=== PATIENT | female | born 1940 | race Caucasian/White ===

== ENCOUNTER 2021-07-26 19:16 | Inpatient (IN) | payer MEDICARE, OTHER ==
[~2021-07-26] VITALS: Ht 160 cm; Wt 62.1 kg
--- NOTE | 2021-07-26 19:20 | NUR ---
PT GI 88 FROM [facility] C/O SOB/ LOW O2 SAT 85% ON RA. BG 128. UPON TRIAGE PT ON 2LPM O2 VIA N/C TOLERATING AT 99%. PT LETHARGIC. CONNECTED PT TO POX AND MONITOR. SAFETY MEASURES IN PLACE.
--- NOTE | 2021-07-26 19:20 | NUR ---
PT GI 88 FROM [facility] C/O SOB/ LOW O2 SAT 85% ON RA. BG 128. UPON TRIAGE PT ON 2LPM O2 VIA N/C TOLERATING AT 99%. PT LETHARGIC. CONNECTED PT TO POX AND MONITOR. SAFETY MEASURES IN PLACE.
--- NOTE | 2021-07-26 19:40 | NUR ---
PRE KINDERGARTEN TEACHER AT PT'S BEDSIDE
--- NOTE | 2021-07-26 19:40 | NUR ---
CARDIOTHORACIC SURGEON AT PT'S BEDSIDE
--- NOTE | 2021-07-26 19:48 | NUR ---
BUILDING CODE INSPECTOR AT PT'S BEDSIDE
--- NOTE | 2021-07-26 19:48 | NUR ---
GAS STATION MANAGER AT PT'S BEDSIDE
--- NOTE | 2021-07-26 19:50 | NUR ---
RT AT PT'S BEDSIDE FOR ABG
--- NOTE | 2021-07-26 19:50 | NUR ---
RT AT PT'S BEDSIDE FOR ABG
--- NOTE | 2021-07-26 19:55 | NUR ---
ESTABLISHED LFA #18G S/L PATENT AND INTACT. BLOOD COLLECTED AND GIVEN TO LAB. SISAL OPERATOR RFA #20G S/L; PATENT AND INTACT.
--- NOTE | 2021-07-26 19:55 | NUR ---
ESTABLISHED LFA #18G S/L PATENT AND INTACT. BLOOD COLLECTED AND GIVEN TO LAB. GAS DISTRIBUTION SUPERVISOR RFA #20G S/L; PATENT AND INTACT.
--- NOTE | 2021-07-26 20:10 | NUR ---
ABG RESULTS SHOWN TO NATA MD & ORDERS FOR BIPAP. PT ON O2 2LPM SATTING AT 100%. RT NOW ON BIBAP SETTINGS 15/5 SATTING AT 100%.
--- NOTE | 2021-07-26 20:10 | NUR ---
ABG RESULTS SHOWN TO NATA MD & ORDERS FOR BIPAP. PT ON O2 2LPM SATTING AT 100%. RT NOW ON BIBAP SETTINGS 15/5 SATTING AT 100%.
[2021-07-26 20:24] LABS: BASOPHILS % (AUTO) 0.2 % (0.0-2.0); EOSINOPHILS % (AUTO) 1.7 % (0.0-6.0); HEMATOCRIT 26 % (33-45); HEMOGLOBIN 8.5 g/dL (11.5-14.8); LYMPHOCYTES # (AUTO) 0.6 K/uL (0.8-4.8); LYMPHOCYTES % (AUTO) 14.5 % (20.0-44.0); MEAN CORPUSCULAR HGB CONC 33 g/dl (31.0-36.0); MEAN CORPUSCULAR VOLUME 85 fL (82-100); MONOCYTES # (AUTO) 0.3 K/uL (0.1-1.30); MONOCYTES % (AUTO) 6.3 % (2.0-12.0); NEUTROPHILS # (AUTO) 3.1 K/uL (1.8-8.9); NEUTROPHILS % (AUTO) 77.3 % (43.0-81.0); PLATELET COUNT (AUTO) 93 K/uL (150-450); RED BLOOD CELL COUNT(AUTO) 3.08 MIL/uL (4.0-5.2)
--- NOTE | 2021-07-26 20:25 | NUR ---
Note feliz in EDM - 07/26/21 at 2150 by KOFFI PT GI 88 FROM [facility] C/O SOB/ LOW O2 SAT 85% ON RA. BG 128. UPON TRIAGE PT ON 2LPM O2 VIA N/C TOLERATING AT 99%. PT LETHARGIC. CONNECTED PT TO POX AND MONITOR. SAFETY MEASURES IN PLACE.
--- NOTE | 2021-07-26 20:25 | NUR ---
Note feliz in EDM - 07/26/21 at 2150 by KOFFI PT GI 88 FROM [facility] C/O SOB/ LOW O2 SAT 85% ON RA. BG 128. UPON TRIAGE PT ON 2LPM O2 VIA N/C TOLERATING AT 99%. PT LETHARGIC. CONNECTED PT TO POX AND MONITOR. SAFETY MEASURES IN PLACE.
--- NOTE | 2021-07-26 20:30 | NUR ---
COVID ANTIGEN SWAB COLLECTED AND SENT TO LAB
--- NOTE | 2021-07-26 20:30 | NUR ---
COVID ANTIGEN SWAB COLLECTED AND SENT TO LAB
[2021-07-26 20:46] LABS: CALCIUM, SERUM 7.9 mg/dL (8.5-10.1); CREATININE 0.6 mg/dL (0.6-1.3); POTASSIUM 4.5 mmol/L (3.5-5.1)
[2021-07-26 20:58] LABS: ALBUMIN 2.4 g/dL (3.4-5.0); BILIRUBIN,DIRECT 0.2 mg/dL (0.0-0.2); BILIRUBIN,TOTAL 0.8 mg/dL (0.2-1.0); TOTAL PROTEIN, SERUM 6.4 g/dL (6.4-8.2)
[2021-07-26] MEDS ORDERED: VANCOMYCIN 1 GM in IV D5W 250 ML IV ONE (21:00)
[2021-07-26] MEDS ORDERED: MEROPENEM 1,000 MG in IV NS 0.9% 100 ML IV ONE (21:00)
[2021-07-26 21:26] LABS: ABG BASE EXCESS 13.8 mmol/L; ABG PCO2 71.1 mmHg (35.0-45.0); COHb 0.3 % (0.5-1.5); MetHb 0.3 % (0.0-1.5); O2Hb 96.9 % (94.0-97.0); SITE, ABG Right Radial; VENT MODE, BG Nasal Cannula
[2021-07-26] MEDS ORDERED: IV NS 0.9% 500 ML BAG IV ONE (21:30)
[2021-07-26] MEDS ORDERED: ACETAMINOPHEN 325 MG TABLET PO PRN (21:30)
[2021-07-26] MEDS ORDERED: ONDANSETRON HCL/PF 4 MG/2 ML VIAL IVP PRN (21:30)
[2021-07-26] MEDS ORDERED: MAGNESIUM HYDROXIDE 30 ML UDC PO PRN (21:30)
--- NOTE | 2021-07-26 21:48 | NUR ---
INSERTED 16FR F/C WITH YELLOW URINE OUTPUT; PATENT AND INTACT. COLLECTED URINE AND SENT TO LAB.
--- NOTE | 2021-07-26 21:48 | NUR ---
INSERTED 16FR F/C WITH YELLOW URINE OUTPUT; PATENT AND INTACT. COLLECTED URINE AND SENT TO LAB.
[2021-07-26 22:32] LABS: LYMPHOCYTES % (MANUAL) 17 % (16-48); MONOCYTES % (MANUAL) 5 % (0-11.0); NEUTROPHILS % (MANUAL) 78 (42-76)
[2021-07-26 22:36] LABS: BILIRUBIN,URINE NEGATIVE (NEGATIVE); COLOR,URINE YELLOW (YELLOW); LEUKOCYTE ESTERASE ,URINE NEGATIVE (NEGATIVE); NITRITE, URINE NEGATIVE (NEGATIVE); PH,URINE 6.5 (5.0-8.0); PROTEIN,URINE TRACE mg/dl (NEGATIVE); UGLUCOSE NEGATIVE (NEGATIVE)
--- NOTE | 2021-07-26 22:41 | NUR ---
ICU 255
--- NOTE | 2021-07-26 22:41 | NUR ---
ICU 255
--- NOTE | 2021-07-26 22:47 | NUR ---
UPDATED DAUGHTER REYNA
--- NOTE | 2021-07-26 22:47 | NUR ---
UPDATED DAUGHTER REYNA
--- NOTE | 2021-07-26 22:51 | NUR ---
RN NOTES RECEIVED ER ADMISSION REPORT FROM FRANKLIN NUR. ALL PERTINENT ADMISSION INFO REGARDING PT NOTED. WILL WAIT FOR PT TO BE TRANSFERRED TO UNIT AND ADDRESS NEEDS ACCORDINGLY. [place] UNDERWRITER MADE AWARE.
--- NOTE | 2021-07-26 22:51 | NUR ---
RN NOTES RECEIVED ER ADMISSION REPORT FROM FRANKLIN NUR. ALL PERTINENT ADMISSION INFO REGARDING PT NOTED. WILL WAIT FOR PT TO BE TRANSFERRED TO UNIT AND ADDRESS NEEDS ACCORDINGLY. FLOWER CHENILLER MADE AWARE.
--- NOTE | 2021-07-26 22:54 | NUR ---
REPORT GIVEN TO DAVIE METER MAINTENANCE PERSON FOR SHAKA
--- NOTE | 2021-07-26 22:54 | NUR ---
REPORT GIVEN TO DAVIE MRP CONTROLLER FOR SHAKA
[2021-07-26 23:15] LABS: C-REACTIVE PROTEIN 2.4 mg/dL (0.0-0.9)
[2021-07-26] MEDS ORDERED: FUROSEMIDE 40 MG/4 ML VIAL IV ONE (23:30)
[2021-07-26] MEDS ORDERED: MODAFINIL PO (23:41)
[2021-07-26] MEDS ORDERED: LEVA0.6320 IH (23:41)
[2021-07-26] MEDS ORDERED: ASPI-1169 PO (23:41)
[2021-07-26] MEDS ORDERED: CYAN-51 PO (23:41)
[2021-07-26] MEDS ORDERED: PANT40TA49 PO (23:41)
--- NOTE | 2021-07-26 23:56 | NUR ---
RT AT PT'S BEDSIDE FOR ABG
--- NOTE | 2021-07-26 23:56 | NUR ---
RT AT PT'S BEDSIDE FOR ABG
[2021-07-27] VITALS (46 sets, daily range): BP systolic 82–162; BP diastolic 27–94
[2021-07-27 00:07] LABS: ABG BASE EXCESS 14.2 mmol/L; ABG PCO2 61.5 mmHg (35.0-45.0); ABG PH 7.435 (7.350-7.450); ABG PO2 83.6 mmHg (75.0-100.0); COHb 0.3 % (0.5-1.5); MetHb 0.3 % (0.0-1.5); O2Hb 95.8 % (94.0-97.0); SITE, ABG Right Brachial; VENT MODE, BG Bipap 15/5 30% RR12
--- NOTE | 2021-07-27 00:15 | NUR ---
RN NOTES RECEIVED PT FROM ER VIA CARYRBRIGIDA ACCOMPANIED BY 2 ER STAFF AND TRANSFERRED TO BED VIA 2 PERSON ASSIST. PT IS A/OX1; ; PT ON BIPAP SETTINGS PRESCRIBED WITH RESPIRATIONS EVEN AND UNLABORED. COMPREHENSIVE PHYSICAL ASSESSMENT AND PATIENT CARE DONE. CALL LIGHT WITHIN REACH, SAFETY MEASURES AND ISOLATION PRECAUTION IN PLACE, WILL CONTINUE MONITOR AND ASSESS THROUGHOUT THE SHIFT. WILL CARRY OUT MD ORDERS ACCORDINGLY. RIBBON INKER MADE AWARE.
--- NOTE | 2021-07-27 00:15 | NUR ---
RN NOTES RECEIVED PT FROM ER VIA CARYRBRIGIDA ACCOMPANIED BY 2 ER STAFF AND TRANSFERRED TO BED VIA 2 PERSON ASSIST. PT IS A/OX1; ; PT ON BIPAP SETTINGS PRESCRIBED WITH RESPIRATIONS EVEN AND UNLABORED. COMPREHENSIVE PHYSICAL ASSESSMENT AND PATIENT CARE DONE. CALL LIGHT WITHIN REACH, SAFETY MEASURES AND ISOLATION PRECAUTION IN PLACE, WILL CONTINUE MONITOR AND ASSESS THROUGHOUT THE SHIFT. WILL CARRY OUT MD ORDERS ACCORDINGLY. PUBLIC HEALTH NUTRITIONIST MADE AWARE.
--- NOTE | 2021-07-27 00:18 | NUR ---
PT TRANSFERRED TO ICU BED 255 VIA ACLS PROTOCOL WITH RT. PER REYNA DAUGHTER, WISHES FOR PT TO BE FULL CODE. ALL BELONGINGS WITH PT.
--- NOTE | 2021-07-27 00:18 | NUR ---
PT TRANSFERRED TO ICU BED 255 VIA ACLS PROTOCOL WITH RT. PER REYNA DAUGHTER, WISHES FOR PT TO BE FULL CODE. ALL BELONGINGS WITH PT.
--- NOTE | 2021-07-27 00:40 | NUR ---
RN NOTES CALLED REYNA ( [phone]) PT'S DAUGHTER PROVIDED GENERAL UPDATES. ALSO OBTAINED FF INFO: PT IS FULL CODE, NON SMOKER AND NON ALCOHOL DRINKER, NO SUICIDAL IDEATION AT HOME, BUT BEING TAKING MEDICATION FOR SLEEP. CLIFFGLG MARGA. USES WALKER AT HOME. PT HAS IRREGULAR BOWEL FREQUENCY. RN ACKNOWLEDGED. ADVISED REYNA THAT WILL KEEP THEM UPDATED FOR ANY SIGNIFICANT CHANGES ABOUT PT. FAMILY ACKNOWLEDGED AND THANKFUL. CUSTOMER SUCCESS MANAGER MADE AWARE. Addendum: 07/27/21 at 0111 by RED CHE RN ALSO RECEIVED PNEUMONIA AND FLU VACCINE AND 2 DOSES OF COVID VACCINE LAST YEAR.
--- NOTE | 2021-07-27 00:40 | NUR ---
RN NOTES CALLED REYNA ( [phone]) PT'S DAUGHTER PROVIDED GENERAL UPDATES. ALSO OBTAINED FF INFO: PT IS FULL CODE, NON SMOKER AND NON ALCOHOL DRINKER, NO SUICIDAL IDEATION AT HOME, BUT BEING TAKING MEDICATION FOR SLEEP. CLIFFBitMethod MARGA. USES WALKER AT HOME. PT HAS IRREGULAR BOWEL FREQUENCY. RN ACKNOWLEDGED. ADVISED REYNA THAT WILL KEEP THEM UPDATED FOR ANY SIGNIFICANT CHANGES ABOUT PT. FAMILY ACKNOWLEDGED AND THANKFUL. EVALUATION SPECIALIST MADE AWARE. Addendum: 07/27/21 at 0111 by RED CHE RN ALSO RECEIVED PNEUMONIA AND FLU VACCINE AND 2 DOSES OF COVID VACCINE LAST YEAR.
[2021-07-27] MEDS: PANTOPRAZOLE 40 MG VIAL IV SCH ×2 (01:00→09:58)
[2021-07-27] MEDS: ENOXAPARIN SODIUM 40 MG/0.4 ML DISP.SYRIN SQ SCH ×2 (01:01→20:47)
--- NOTE | 2021-07-27 04:05 | NUR ---
RN NOTES NO NOTED CHANGES IN PATIENT CONDITION AT THIS TIME; PATIENT VITALS STABLE, NO SIGNS OF ACUTE RESPIRATORY DISTRESS. AM PATIENT CARE RENDERED.WILL CONTINUE TO MONITOR AND REASSESS FOR ANY CHANGES THROUGHOUT THE SHIFT.
[2021-07-27 04:46] LABS: BASOPHILS % (AUTO) 0.2 % (0.0-2.0); EOSINOPHILS % (AUTO) 2.2 % (0.0-6.0); HEMATOCRIT 27 % (33-45); HEMOGLOBIN 8.6 g/dL (11.5-14.8); LYMPHOCYTES # (AUTO) 0.7 K/uL (0.8-4.8); LYMPHOCYTES % (AUTO) 15.9 % (20.0-44.0); MEAN CORPUSCULAR HGB CONC 32 g/dl (31.0-36.0); MEAN CORPUSCULAR VOLUME 86 fL (82-100); MONOCYTES # (AUTO) 0.3 K/uL (0.1-1.30); NEUTROPHILS # (AUTO) 3.2 K/uL (1.8-8.9); NEUTROPHILS % (AUTO) 73.7 % (43.0-81.0); PLATELET COUNT (AUTO) 100 K/uL (150-450); RED BLOOD CELL COUNT(AUTO) 3.12 MIL/uL (4.0-5.2); WHITE BLOOD COUNT (AUTO) 4.3 K/uL (4.3-11.0)
[2021-07-27 04:57] LABS: CALCIUM, SERUM 7.9 mg/dL (8.5-10.1); CHLORIDE 100 mmol/L (98-107); CREATININE 0.6 mg/dL (0.6-1.3); GLUCOSE 95 mg/dL (74-106); MAGNESIUM 2.2 mg/dL (1.8-2.4); PHOSPHORUS 3.7 mg/dL (2.5-4.9); POTASSIUM 3.9 mmol/L (3.5-5.1); SODIUM SERUM 144 mmol/L (136-145); UREA NITROGEN, BLOOD 33 mg/dL (7-18)
[2021-07-27 05:04] LABS: CHOLESTEROL 98 mg/dL (<200); HDL CHOLESTEROL 46 mg/dL (40-60); LDL 42 mg/dL (0-99); TRIGLYCERIDES 52 mg/dL (30-150)
[2021-07-27 05:08] LABS: CARBON DIOXIDE 40 mmol/L (21-32)
--- NOTE | 2021-07-27 05:20 | NUR ---
RN NOTES NOTIFIED IGOR OROZCO (MEME Márquez,SALLY) REGARDING CO2 FOR THIS AM @40, PREVIOSULY AT 38; PT STILL ON BIPAP. NO NEW ORDERS FROM IGOR OROZCO. RETAIL CASHIER ASSOCIATE MADE AWARE.
--- NOTE | 2021-07-27 05:20 | NUR ---
RN NOTES NOTIFIED IGOR OROZCO (MEME Márquez,SALLY) REGARDING CO2 FOR THIS AM @40, PREVIOSULY AT 38; PT STILL ON BIPAP. NO NEW ORDERS FROM IGOR OROZCO. NETWORK DESIGN ARCHITECT MADE AWARE.
--- NOTE | 2021-07-27 06:00 | NUR ---
RN NOTES FACILITATED INSERTION OF ADDITIONAL IV LINE/ACCESS @ L HAND G#22; SALINE LOCK, SECURED, INTACT AND FLUSHING WELL. PLANT CHIEF MADE AWARE.
--- NOTE | 2021-07-27 06:00 | NUR ---
RN NOTES FACILITATED INSERTION OF ADDITIONAL IV LINE/ACCESS @ L HAND G#22; SALINE LOCK, SECURED, INTACT AND FLUSHING WELL. FARMER DIVERSIFIED CROPS MADE AWARE.
--- NOTE | 2021-07-27 07:01 | NUR ---
RN CLOSING NOTE: PATIENT REMAINS IN ROOM IN NO SIGNS OF RESPIRATORY DISTRESS, PATIENT STILL ON 15L OF 02 VIA BIPAP, SETTING PRESCRIBED;TOLERATING WELL SATURATING @ >95% SP02. SAFETY MEASURES IMPLEMENTED, BED IN LOWEST POSITION, LOCKED, SIDE RAILS UP, CALL LIGHT WITHIN REACH. ALL NEEDS AND ORDERS ADDRESSED DURING THE SHIFT. IV ACCESS MAINTAINED INTACT, SECURED AND FLUSHING WELL. ALL DUE MEDS GIVEN ORDERED & SCHEDULED ; PATIENT TOLERATED WELL. PATIENT KEPT CLEAN AND COMFORTABLE WITHIN THE SHIFT. PATIENT ENDORSED TO INCOMING SHIFT RN WITH STABLE VITAL SIGN AND FOR CONTINUITY OF CARE.
--- NOTE | 2021-07-27 07:30 | NUR ---
AUTOMATIC SERGING MACHINE OPERATOR OPENING NOTES Patient is alert but not oriented and forgetfull and confused. Per report patient pulled out her IV lines. Patient on bipap and 02 sat of 98% . HOB kept elevated. Patient noted with aponte cath and its intact and hanging to gravity with clear yellow urine. Will continue to monitor. Call light with in reach. Bed is in lowest and locked position.
--- NOTE | 2021-07-27 08:00 | NUR ---
Patient noted with iv line out. Site free of s/s of bleeding. New iv line to left hand started but patient pulled it out again. Patient currently on 3 liters 02 via n/c. Informed MD Tuttle and received orders for Bilateral soft wrist restraints. Patient started iv line to left forearm 22 gauge.
--- NOTE | 2021-07-27 08:36 | NUR ---
WOUND CARE CONSULT: REVIEWED CHART, NURSING DOCUMENTATION AND PHOTOS WHICH INDICATE LOWER EXTREMITY WOUNDS AND DISCOLORATION/SCARRING TO BACK AND SACRUM PRESENT ON ADMISSION. DPM CONSULT CALLED TO DR BREWER. RECOMMENDATIONS MADE FOR SKIN PROTECTION. DISCUSSED WITH NURSING STAFF. PER RN, PT ABLE TO ASSIST WITH TURNING AND REPOSITIONING IN BED. MD IN AGREEMENT WITH PLAN OF CARE.
[2021-07-27] MEDS ORDERED: Z GUARD REMEDY 4 OZ OINT TP PRN (09:00)
[2021-07-27 09:21] LABS: BACTERIA,URINE Few /HPF (None Seen); RBC,URINE 0-3 /HPF (0-2); SQUAMOUS EPITHELIAL CELL,UR Moderate /HPF (None Seen); WBC,URINE 0-2 /HPF (0-3)
[2021-07-27] MEDS: Z GUARD REMEDY 4 OZ OINT TP SCH (09:58)
[2021-07-27] MEDS ORDERED: DOSE PER PHARMACY (MD SPECIFY MEDICATION) 1 EA IV PRN (15:30)
--- NOTE | 2021-07-27 16:00 | NUR ---
Received ST consult from MD Tuttle for diet order due to patient positive for video swallow study at [facility] per records.
--- NOTE | 2021-07-27 16:00 | NUR ---
Received ST consult from MD Tuttle for diet order due to patient positive for video swallow study at [facility] per records.
[2021-07-27] MEDS: VANCOMYCIN HCL 0.75 GM in IV D5W 250 ML IV SCH (16:35)
[2021-07-27] MEDS: MEROPENEM 1 G in IV NS 0.9% 100 ML IV SCH (17:43)
--- NOTE | 2021-07-27 18:53 | NUR ---
RECRUITMENT ASSISTANT CLOSING NOTES Patient is alert but not oriented and forgetfull and confused. Patient is on 3 liters via n/c with 02 sat of 98%. HOB kept elevated. Patient noted with aponte cath and its intact and hanging to gravity with clear yellow urine and output of 800 cc. Will continue to monitor. Call light with in reach. Bed is in lowest and locked position. Endorsed to next shift for SHAKA.
--- NOTE | 2021-07-27 20:43 | NUR ---
ORAL SURGERY PHYSICIAN DESPITE BSWR PT HAS REMOVED LEADS 3x; PT APOLOGIZES SAYING ITS BECAUSE SHE FELL ASLEEP.
--- NOTE | 2021-07-27 20:43 | NUR ---
STAMPING DIE MAKER BENCH DESPITE BSWR PT HAS REMOVED LEADS 3x; PT APOLOGIZES SAYING ITS BECAUSE SHE FELL ASLEEP.
[2021-07-28] VITALS (24 sets, daily range): BP systolic 83–180; BP diastolic 40–100
[2021-07-28] MEDS: MEROPENEM 1 G in IV NS 0.9% 100 ML IV SCH ×3 (01:15→16:00)
[2021-07-28] MEDS: VANCOMYCIN HCL 0.75 GM in IV D5W 250 ML IV SCH (04:00)
[2021-07-28 05:11] LABS: BASOPHILS % (AUTO) 0.3 % (0.0-2.0); EOSINOPHILS % (AUTO) 2.2 % (0.0-6.0); HEMATOCRIT 28 % (33-45); HEMOGLOBIN 9.3 g/dL (11.5-14.8); LYMPHOCYTES # (AUTO) 0.6 K/uL (0.8-4.8); LYMPHOCYTES % (AUTO) 15.6 % (20.0-44.0); MEAN CORPUSCULAR HGB CONC 33 g/dl (31.0-36.0); MEAN CORPUSCULAR VOLUME 85 fL (82-100); MONOCYTES # (AUTO) 0.3 K/uL (0.1-1.30); MONOCYTES % (AUTO) 9.1 % (2.0-12.0); NEUTROPHILS # (AUTO) 2.8 K/uL (1.8-8.9); NEUTROPHILS % (AUTO) 72.8 % (43.0-81.0); PLATELET COUNT (AUTO) 122 K/uL (150-450); RED BLOOD CELL COUNT(AUTO) 3.28 MIL/uL (4.0-5.2); WHITE BLOOD COUNT (AUTO) 3.8 K/uL (4.3-11.0)
--- NOTE | 2021-07-28 05:32 | NUR ---
HIGH SCHOOL BUSINESS TEACHER PT REFUSED BIPAP REMAINED ON 02 3 L NC NO DISTRESS NOTED
--- NOTE | 2021-07-28 05:32 | NUR ---
ESCALATOR INSTALLER PT REFUSED BIPAP REMAINED ON 02 3 L NC NO DISTRESS NOTED
[2021-07-28 05:57] LABS: ALANINE AMINOTRANSFERASE 15 U/L (12-78); ALBUMIN 2.5 g/dL (3.4-5.0); ALKALINE PHOSPHATASE 103 U/L (46-116); ASPARTATE AMINOTRANSFERASE 23 U/L (15-37); BILIRUBIN,TOTAL 1.1 mg/dL (0.2-1.0); CALCIUM, SERUM 7.5 mg/dL (8.5-10.1); CARBON DIOXIDE 34 mmol/L (21-32); CHLORIDE 100 mmol/L (98-107); CREATININE 0.5 mg/dL (0.6-1.3); GLUCOSE 68 mg/dL (74-106); PHOSPHORUS 2.7 mg/dL (2.5-4.9); POTASSIUM 3.5 mmol/L (3.5-5.1); SODIUM SERUM 140 mmol/L (136-145); TOTAL PROTEIN, SERUM 6.4 g/dL (6.4-8.2); UREA NITROGEN, BLOOD 27 mg/dL (7-18)
--- NOTE | 2021-07-28 07:11 | NUR ---
RN OPENING NOTE RECEIVE REPORT FROM CHECK EMBOSSER NURSE. PATIENT IN STABLE CONDITION WITH NO SIGN OF DISTRESS. A/O X2. CURRENTLY ON NC AT 3L/MIN WITH O2 SAT AT 100%. PATIENT IS NPO AND AWAITING SPEECH CONSULT FOR DIET. WILL FOLLOW UP AM LABS AND DOCTOR ORDERS. PROPER ISOLATION IN PLACE. ALL SAFETY MEASURE IN PLACE. BED ON LOWEST POSITION WITH HOB ELEVATED. CALL LIGHT WITHIN REACH. WILL CONTINUE TO MONITOR.
--- NOTE | 2021-07-28 07:11 | NUR ---
RN OPENING NOTE RECEIVE REPORT FROM ORDERLIES TEACHER NURSE. PATIENT IN STABLE CONDITION WITH NO SIGN OF DISTRESS. A/O X2. CURRENTLY ON NC AT 3L/MIN WITH O2 SAT AT 100%. PATIENT IS NPO AND AWAITING SPEECH CONSULT FOR DIET. WILL FOLLOW UP AM LABS AND DOCTOR ORDERS. PROPER ISOLATION IN PLACE. ALL SAFETY MEASURE IN PLACE. BED ON LOWEST POSITION WITH HOB ELEVATED. CALL LIGHT WITHIN REACH. WILL CONTINUE TO MONITOR.
[2021-07-28] MEDS: PANTOPRAZOLE 40 MG VIAL IV SCH (08:50)
[2021-07-28] MEDS: Z GUARD REMEDY 4 OZ OINT TP SCH (08:50)
[2021-07-28 11:31] LABS: ABG PH 7.407 (7.350-7.450); AaDO2 51.9 mmHg; COHb 0.3 % (0.5-1.5); MetHb 0.3 % (0.0-1.5); O2Hb 96.4 % (94.0-97.0); SITE, ABG Right Radial; VENT MODE, BG N/C
[2021-07-28] MEDS: VANCOMYCIN 1.25 GM in IV D5W 250 ML IV SCH (16:51)
--- NOTE | 2021-07-28 18:38 | NUR ---
RN CLOSING NOTE PATIENT MAINTAIN STABLE CONDITION WITH NO SIGN OF DISTRESS THROUGH OUT SHIFT. NEURO ASSESSMENT REMAIN AT BASELINE. A/O X1. CONTINUE RECEIVING O2 DELIVERY VIA NC AT 3L/MIN. O2 SAT 98-100%. PATIENT OK TO TRANSFER TO LOWER LEVEL OF CARE PER DR. ALVAREZ. VANCOMYCIN TROUGH WAS DRAWN PRIOR TO 3RD DOSE OF VANCOMYCIN. VACO TROUGH RESULT 4. 3RD DOSE WAS STARTED. AWAITING SPEECH CONSULT EVALUATION FOR DIET. PATIENT WAS TURN AND REPOSITION PER PROTOCOL. PROPER ISOLATION PRECAUTION IN PLACE. ALL SAFETY MEASURE IN PLACE. BED ON LOWEST POSITION WITH HOB ELEVATED AND 3 SIDE RAIL UP. CALL LIGHT WITHIN REACH. WILL CONTINUE TO MONITOR AND ENDORSE TO NURSE WHO WILL BE CONTINUE CARE.
[2021-07-28] MEDS ORDERED: IV NS 0.9% 250 ML IV PRN (19:30)
[2021-07-28] MEDS: ENOXAPARIN SODIUM 40 MG/0.4 ML DISP.SYRIN SQ SCH (21:06)
[2021-07-29] VITALS (28 sets, daily range): BP systolic 91–147; BP diastolic 25–77
[2021-07-29] MEDS: VANCOMYCIN 1.25 GM in IV D5W 250 ML IV SCH ×2 (04:00→15:52)
[2021-07-29 05:24] LABS: BASOPHILS % (AUTO) 0.4 % (0.0-2.0); EOSINOPHILS % (AUTO) 2.2 % (0.0-6.0); HEMATOCRIT 29 % (33-45); HEMOGLOBIN 9.4 g/dL (11.5-14.8); LYMPHOCYTES # (AUTO) 0.6 K/uL (0.8-4.8); LYMPHOCYTES % (AUTO) 13.4 % (20.0-44.0); MEAN CORPUSCULAR HGB CONC 33 g/dl (31.0-36.0); MEAN CORPUSCULAR VOLUME 84 fL (82-100); MONOCYTES # (AUTO) 0.3 K/uL (0.1-1.30); MONOCYTES % (AUTO) 7.1 % (2.0-12.0); NEUTROPHILS # (AUTO) 3.2 K/uL (1.8-8.9); NEUTROPHILS % (AUTO) 76.9 % (43.0-81.0); PLATELET COUNT (AUTO) 172 K/uL (150-450); WHITE BLOOD COUNT (AUTO) 4.2 K/uL (4.3-11.0)
[2021-07-29 05:46] LABS: ALANINE AMINOTRANSFERASE 20 U/L (12-78); ALBUMIN 2.5 g/dL (3.4-5.0); ALKALINE PHOSPHATASE 99 U/L (46-116); ASPARTATE AMINOTRANSFERASE 22 U/L (15-37); CALCIUM, SERUM 7.4 mg/dL (8.5-10.1); CARBON DIOXIDE 34 mmol/L (21-32); CHLORIDE 97 mmol/L (98-107); CREATININE 0.5 mg/dL (0.6-1.3); GLUCOSE 62 mg/dL (74-106); MAGNESIUM 1.8 mg/dL (1.8-2.4); PHOSPHORUS 2.3 mg/dL (2.5-4.9); POTASSIUM 3.5 mmol/L (3.5-5.1); SODIUM SERUM 136 mmol/L (136-145); TOTAL PROTEIN, SERUM 6.2 g/dL (6.4-8.2); UREA NITROGEN, BLOOD 24 mg/dL (7-18)
--- NOTE | 2021-07-29 07:00 | NUR ---
RN NOTES RECEIVED PT ON BED, A/Ox1, CAYMAN ISLANDER SPEAKING , ON 3L O2 N/C , ON TELE SR HR IN 60'S , OLVERA DRAINING TO GRAVITY, IV SITES CLEAN , DRY AND INTACT, PT IS NPO , PENDING SWALLOWING EVAL , SR UP x3, CALL LIGHT WITHIN EASY REACH, BED LOCKED AND IN LOWEST POSITION , CONTINUE TO MONITOR.
--- NOTE | 2021-07-29 07:00 | NUR ---
RN NOTES RECEIVED PT ON BED, A/Ox1, GERMAN SPEAKING , ON 3L O2 N/C , ON TELE SR HR IN 60'S , OLVERA DRAINING TO GRAVITY, IV SITES CLEAN , DRY AND INTACT, PT IS NPO , PENDING SWALLOWING EVAL , SR UP x3, CALL LIGHT WITHIN EASY REACH, BED LOCKED AND IN LOWEST POSITION , CONTINUE TO MONITOR.
[2021-07-29] MEDS: PANTOPRAZOLE 40 MG VIAL IV SCH (08:05)
[2021-07-29] MEDS: Z GUARD REMEDY 4 OZ OINT TP SCH (08:05)
[2021-07-29] MEDS: MEROPENEM 1 G in IV NS 0.9% 100 ML IV SCH ×3 (08:05→16:59)
--- NOTE | 2021-07-29 11:00 | NUR ---
RN NOTES PT TOLERATING RA WELL , O2 SAT WNL, CONTINUE TO MONITOR .
--- NOTE | 2021-07-29 11:00 | NUR ---
RN NOTES PT TOLERATING RA WELL , O2 SAT WNL, CONTINUE TO MONITOR .
[2021-07-29] MEDS ORDERED: NEUTRA PHOS 1 POWD.PACKET PO ONE (14:00)
--- NOTE | 2021-07-29 17:30 | NUR ---
RN NOTES PT REFUSED DINNER .
--- NOTE | 2021-07-29 17:30 | NUR ---
RN NOTES PT REFUSED DINNER .
--- NOTE | 2021-07-29 18:08 | NUR ---
RN NOTES PT REMANS A/O X2, ON RA, NO RESPIRATORY DISTRESS NOTED , REFUSED TO EAT AT TIMES , IV SITES CLEAN, DRY AND INTACT, WILL ENDORSE TO MEDICAL LABORATORY TECHNICAL OFFICER NURSE FOR CONTINUITY OF CARE .
--- NOTE | 2021-07-29 18:08 | NUR ---
RN NOTES PT REMANS A/O X2, ON RA, NO RESPIRATORY DISTRESS NOTED , REFUSED TO EAT AT TIMES , IV SITES CLEAN, DRY AND INTACT, WILL ENDORSE TO DISPATCHER REFINERY NURSE FOR CONTINUITY OF CARE .
--- NOTE | 2021-07-29 19:05 | NUR ---
RN NOTES PT TRANSFERRED TO ROOM 116-1 [facility] STATUS VIA ACLS PROTOCOL IN STABLE CONDITION, REPORT GIVEN TO RAMON REID FOR CONTINUITY OF CARE .
--- NOTE | 2021-07-29 19:05 | NUR ---
RN NOTES PT TRANSFERRED TO ROOM 116-1 [facility] STATUS VIA ACLS PROTOCOL IN STABLE CONDITION, REPORT GIVEN TO RAMON REID FOR CONTINUITY OF CARE .
--- NOTE | 2021-07-29 19:07 | NUR ---
RN NOTES RECEIVED PATIENT FROM ICU ACCOMPANIED BY MARY ALICE REDI, LIVIER CONTINUATION OF CARE, RECEIVED REPORT AT BEDSIDE, PATIENT AT ROOM AIR WITH STABLE VITAL SIGNS AND O2 WNL, NO SOB/ACUTE DISTRESS NOTED, RECEIVED PATIENT ON BILATERAL RESTRAINS, NO ABNORMALITY NOTED AT SITE, NO CIRCULATION COMPROMISED, WILL CONTINUE TO MONITOR CLOSELY.
--- NOTE | 2021-07-29 19:07 | NUR ---
RN NOTES RECEIVED PATIENT FROM ICU ACCOMPANIED BY MARY ALICE REID, LIVIER CONTINUATION OF CARE, RECEIVED REPORT AT BEDSIDE, PATIENT AT ROOM AIR WITH STABLE VITAL SIGNS AND O2 WNL, NO SOB/ACUTE DISTRESS NOTED, RECEIVED PATIENT ON BILATERAL RESTRAINS, NO ABNORMALITY NOTED AT SITE, NO CIRCULATION COMPROMISED, WILL CONTINUE TO MONITOR CLOSELY.
[2021-07-29] MEDS: ENOXAPARIN SODIUM 40 MG/0.4 ML DISP.SYRIN SQ SCH (21:40)
[2021-07-30] VITALS: BP 129/69
[2021-07-30] MEDS: MEROPENEM 1 G in IV NS 0.9% 100 ML IV SCH ×3 (01:22→16:35)
[2021-07-30 04:00] VITALS: BP 126/56
[2021-07-30] MEDS: VANCOMYCIN 1.25 GM in IV D5W 250 ML IV SCH ×2 (04:00→15:06)
--- NOTE | 2021-07-30 07:20 | NUR ---
RN CLOSING NOTES PATIENT IN BED , NO SOB/ACUTE DISTRESS NOTED, NO SIGNIFICANT CHANGE IN CONDITION DURING THE NIGHT, ON BILATERAL RESTRAINS, NO ABNORMALITY NOTED AT SITE, NO CIRCULATION COMPROMISED, ENDORSED PATIENT TO STEVE REID FOR CONTINUITY OF CARE.
--- NOTE | 2021-07-30 07:24 | NUR ---
RN OPENING NOTE RECEIVE REPORT FROM EXECUTIVE ASSOCIATE NURSE. PATIENT IN STABLE CONDITION WITH NO SIGN OF DISTRESS. A/O X2. CURRENTLY ON RASAT AT 95%. PATIENT IS ON PUREE DIET. WILL FOLLOW UP AM LABS AND DOCTOR ORDERS. PROPER ISOLATION IN PLACE. ALL SAFETY MEASURE IN PLACE. BED ON LOWEST LOCKED POSITION WITH HOB ELEVATED. SR UP X 3 AND CALL LIGHT WITHIN REACH. WILL CONTINUE TO MONITOR.
--- NOTE | 2021-07-30 07:24 | NUR ---
RN OPENING NOTE RECEIVE REPORT FROM DIRECTOR OF VOCATIONAL TRAINING NURSE. PATIENT IN STABLE CONDITION WITH NO SIGN OF DISTRESS. A/O X2. CURRENTLY ON RASAT AT 95%. PATIENT IS ON PUREE DIET. WILL FOLLOW UP AM LABS AND DOCTOR ORDERS. PROPER ISOLATION IN PLACE. ALL SAFETY MEASURE IN PLACE. BED ON LOWEST LOCKED POSITION WITH HOB ELEVATED. SR UP X 3 AND CALL LIGHT WITHIN REACH. WILL CONTINUE TO MONITOR.
[2021-07-30 07:56] LABS: BASOPHILS % (AUTO) 0.4 % (0.0-2.0); EOSINOPHILS % (AUTO) 2.3 % (0.0-6.0); HEMATOCRIT 28 % (33-45); HEMOGLOBIN 9.2 g/dL (11.5-14.8); LYMPHOCYTES % (AUTO) 19.3 % (20.0-44.0); MEAN CORPUSCULAR HGB CONC 33 g/dl (31.0-36.0); MEAN CORPUSCULAR VOLUME 84 fL (82-100); MONOCYTES # (AUTO) 0.4 K/uL (0.1-1.30); MONOCYTES % (AUTO) 8.5 % (2.0-12.0); NEUTROPHILS # (AUTO) 3.6 K/uL (1.8-8.9); NEUTROPHILS % (AUTO) 69.5 % (43.0-81.0); PLATELET COUNT (AUTO) 221 K/uL (150-450); RED BLOOD CELL COUNT(AUTO) 3.37 MIL/uL (4.0-5.2); WHITE BLOOD COUNT (AUTO) 5.1 K/uL (4.3-11.0)
[2021-07-30 08:00] VITALS: BP 124/67
[2021-07-30 08:48] LABS: ALANINE AMINOTRANSFERASE 20 U/L (12-78); ALBUMIN 2.4 g/dL (3.4-5.0); ALKALINE PHOSPHATASE 94 U/L (46-116); ASPARTATE AMINOTRANSFERASE 26 U/L (15-37); CALCIUM, SERUM 7.3 mg/dL (8.5-10.1); CARBON DIOXIDE 31 mmol/L (21-32); CHLORIDE 94 mmol/L (98-107); CREATININE 0.5 mg/dL (0.6-1.3); GLUCOSE 96 mg/dL (74-106); MAGNESIUM 1.9 mg/dL (1.8-2.4); PHOSPHORUS 2.3 mg/dL (2.5-4.9); POTASSIUM 3.7 mmol/L (3.5-5.1); SODIUM SERUM 131 mmol/L (136-145); UREA NITROGEN, BLOOD 18 mg/dL (7-18)
[2021-07-30] MEDS: PANTOPRAZOLE 40 MG VIAL IV SCH (09:04)
[2021-07-30] MEDS: Z GUARD REMEDY 4 OZ OINT TP SCH (09:04)
[2021-07-30 12:00] VITALS: BP 101/49
[2021-07-30] MEDS ORDERED: NEUTRA PHOS 1 POWD.PACKET PO ONE (16:00)
--- NOTE | 2021-07-30 19:18 | NUR ---
DC NOTES PT DC'S TO [facility] IN STABLE CONDITION. REPORT GIVEN TO FRANKLIN PIERCE AT [facility]. DC INSTRUCTIONS GIVEN AND EXPLAINED TO PT. VERBALIZED UNDERSTANDING. ALL PAPERWORK SIGNED AND COMPLETED. ALL BELONGINGS SENT WITH PT. IV ACCESS DISCONTINUED. OLVERA CATH. REMOVED. NO COMPLICATIONS NOTED. PT LEFT UNIT IN GOOD SPIRITS AND STABLE CONDITION VIA GURNEY. PT ENDORSED TO AMBULANCE CREW ACCORDINGLY.
--- NOTE | 2021-07-30 19:18 | NUR ---
DC NOTES PT DC'S TO [facility] IN STABLE CONDITION. REPORT GIVEN TO FRANKLIN PIERCE AT [facility]. DC INSTRUCTIONS GIVEN AND EXPLAINED TO PT. VERBALIZED UNDERSTANDING. ALL PAPERWORK SIGNED AND COMPLETED. ALL BELONGINGS SENT WITH PT. IV ACCESS DISCONTINUED. OLVERA CATH. REMOVED. NO COMPLICATIONS NOTED. PT LEFT UNIT IN GOOD SPIRITS AND STABLE CONDITION VIA GURNEY. PT ENDORSED TO AMBULANCE CREW ACCORDINGLY.
== END 2021-07-30 20:00 | DRG 177 ==
LOC: ER 19:16 → ICU 22:56 → TELE-TD 07-29 19:03
PROVIDERS: ADMIT Nurse Practitioner Acute Care
PROC: 5A09357 Assistance with Respiratory Ventilation, Less than 24 Consecutive Hours, Continuous Positive Airway Pressure (ICD-10-PCS; principal; 2021-07-26)
DX: J69.0 Pneumonitis due to inhalation of food and vomit (principal); J96.22 Acute and chronic respiratory failure with hypercapnia; G93.41 Metabolic encephalopathy; I50.33 Acute on chronic diastolic (congestive) heart failure; J96.21 Acute and chronic respiratory failure with hypoxia; E44.0 Moderate protein-calorie malnutrition; D61.818 Other pancytopenia; L97.929 Non-pressure chronic ulcer of unspecified part of left lower leg with unspecified severity; L97.919 Non-pressure chronic ulcer of unspecified part of right lower leg with unspecified severity; E86.0 Dehydration; Z20.822 Contact with and (suspected) exposure to COVID-19; G47.419 Narcolepsy without cataplexy; D64.9 Anemia, unspecified; Y95 Nosocomial condition; F03.90 Unspecified dementia, unspecified severity, without behavioral disturbance, psychotic disturbance, mood disturbance, and anxiety; I87.2 Venous insufficiency (chronic) (peripheral); S90.422A Blister (nonthermal), left great toe, initial encounter; X58.XXXA Exposure to other specified factors, initial encounter; Y92.9 Unspecified place or not applicable; I87.303 Chronic venous hypertension (idiopathic) without complications of bilateral lower extremity; M62.562 Muscle wasting and atrophy, not elsewhere classified, left lower leg; M62.561 Muscle wasting and atrophy, not elsewhere classified, right lower leg; F09 Unspecified mental disorder due to known physiological condition
CPT/HCPCS: 36415; 36600; 71045-TC; 80048-TC; 80053-TC; 80061-TC; 80076-TC; 80202-TC; 81001; 83605-TC; 83735-TC; 83880; 84100-TC; 84484-TC; 85025-TC; 85730-TC; 86140-TC; 87040-TC; 87081-TC; 87086-TC; 92521; 92526; 93307-TC; 94760-TC; C9113; C9803; G0378; J1650; J1940; J2185; J3370; J7030; J7050; J7060; U0003

== ENCOUNTER 2021-10-21 21:11 | Emergency (ER) | payer MEDICARE, OTHER ==
[~2021-10-21] VITALS: Ht 157.5 cm; Wt 66.7 kg
[~2021-10-21 21:11] MED LIST: ASPI-1169 PO; CYAN-51 PO; LEVA0.6320 IH; MODAFINIL PO; PANT40TA49 PO
--- NOTE | 2021-10-21 21:23 | NUR ---
Note katelynnone in EDM - 10/21/21 at 2125 by HARRIET BROUGHT IN BY YADIRA FROM [facility] FOR C/O OF RING STUCK ON R HAND THIRD DIGIT. DIGIT RED AND EDEMATOUS. EMT AT BEDSIDE FOR RING REMOVAL. PT AWAKE AND ALERT BREATHING EVEN AND UNLABORED.
--- NOTE | 2021-10-21 21:24 | NUR ---
BROUGHT IN BY PA FROM [facility] FOR C/O OF RING STUCK ON L HAND THIRD DIGIT. DIGIT RED AND EDEMATOUS. EMT AT BEDSIDE FOR RING REMOVAL. PT AWAKE AND ALERT BREATHING EVEN AND UNLABORED.
[2021-10-21] MEDS ORDERED: HYDROCODONE/APAP 5/325MG TABLET ONE (21:30)
[2021-10-21] MEDS ORDERED: CLINDAMYCIN HCL 150 MG CAPSULE ONE (21:30)
[2021-10-21] MEDS ORDERED: CLINDAMYCIN HCL 150 MG CAPSULE PO ONE (21:30)
[2021-10-21] MEDS ORDERED: HYDROCODONE/APAP 5/325MG TABLET PO ONE (21:30)
[2021-10-21] MEDS ORDERED: CLIN300C12 PO (21:54)
--- NOTE | 2021-10-21 22:02 | NUR ---
[facility] ETA 10 MINUTES
--- NOTE | 2021-10-21 22:11 | NUR ---
REPORT GIVEN TO ED AT [facility]
--- NOTE | 2021-10-21 22:18 | NUR ---
PT PICKED UP BY [facility]. BEDSIDE REPORT GIVEN TO LUNG PULLER. ALL V/S STABLE AT TIME OF TRANSPORT.
[2021-10-21 22:20] VITALS: BP 118/68
== END 2021-10-21 22:33 ==
LOC: ER 21:14
DX: L03.012 Cellulitis of left finger (principal); J44.9 Chronic obstructive pulmonary disease, unspecified; Z87.821 Personal history of retained foreign body fully removed; Z86.59 Personal history of other mental and behavioral disorders; Z88.0 Allergy status to penicillin; Z79.82 Long term (current) use of aspirin; Z79.899 Other long term (current) drug therapy
CPT/HCPCS: 73140-TC